=== PATIENT | male | born 1980 | race Caucasian/White ===

== ENCOUNTER 2016-09-08 22:36 | Emergency (ER) | payer MEDICAID, OTHER ==
[~2016-09-08] VITALS: Ht 177.8 cm; Wt 110.0 kg
[2016-09-08 22:45] VITALS: BP 159/110; PULSE 122; RESP 16; O2SAT 99
--- NOTE | 2016-09-08 22:58 | ED.REPORT ---
HPI-General Illness Date of Service Sep 08, 2016 ED Provider: Gareth Bello DO A 36 year old male with a history of anxiety and asthma presents to the ED complaining of possible chemical exposure. The pt was buying a car at 17:00 today when he was exposed to an ozone deodorizing machine. The pt was standing near a car containing this machine when the door was opened. He gasped and immediately noticed a headache and "lung pain." The machine was removed from the car and he test drove it thirty minutes later for an extended period of time. He is now complaining of a "chlorine gas taste" in his mouth, headache, dry mouth, burning lungs, throat irritation, chest heaviness, and difficulty breathing secondary to the chest heaviness. Nursing Notes Stated Complaint: CHEMICAL EXPOSURE Chief Complaint: Respiratory Distress Nursing Notes Reviewed: Yes Allergies: Coded Allergies: No Known Allergies (Verified Allergy, Unknown, 09/08/16) No Active Prescriptions or Reported Meds General Time Seen by MD: 22:58 Chief Complaint Other (Chemical exposure) Hx Obtained From: Patient Arrived By: Walk-in Sudden in Onset?: Yes Onset Occurred: 5 - 8 hours ago Symptom Duration: Since onset Recent Healthcare: No recent doctor visit, No recent hospitalization Similar Sx Previous: No Past Medical History Past Medical History Notes: PCP: Dr. Jenkins in [place] (last seen in 2013) Past Medical History Anxiety Asthma Past Surgical History none reported Family History Reports: Diabetes mellitus, Hypertension Smoking History Current Every Day Smoker Social History Alcohol Use: Denies alcohol use Drug Use: THC Other Social History: , Local resident Ambulatory Status Independent Review of Systems "lung pain" dry mouth throat irritation chest heaviness with difficulty breathing "chlorine gas taste" Full Review of Systems Constitutional: Denies: Fever Respiratory: Denies: Non-productive cough GI: Denies: Abdominal pain Musculoskeletal: Denies: Back pain, Neck pain Skin: Denies Rash Neurologic: Reports: Headache Complete sys rev & neg: except as marked. Physical Exam Vital Signs Vital Signs Date Time Temp Pulse Resp B/P Pulse Ox O2 Delivery O2 Flow Rate FiO2 09/09/16 02:51 36.8 94 24 136/72 94 Room Air 09/09/16 00:47 103 22 96 Room Air 09/08/16 22:45 36.4 122 16 159/110 99 Room Air Initial VS: Reviewed General/Constitutional: Awake, Alert Head / Eyes: Atraumatic, Normocephalic, PERRL, EOMI ENT: Atraumatic, Airway patent, Mucous membranes moist Neck: Atraumatic, Supple, Full range of motion Respiratory / Chest: Atraumatic, Breath sounds = bilat, No respiratory distress faint coarse breath sounds bilaterally Cardiovascular: Heart rate NL, Regular rhythm, Heart sounds NL Abdomen: Atraumatic, Soft, Non-tender Back: Atraumatic, Full range of motion Upper Extremities Upper Extremity / MS: Atraumatic, Full range of motion Lower Extremity / Pelvis / MS: Atraumatic, Full range of motion Skin: Atraumatic, Color NL, No rash, Warm, Dry Neurologic: Oriented X3, Speech NL, No motor deficits, No sensory deficits Psychiatric: Affect NL, Mood NL Interpretation & Diagnostics Lab Results Interpretation Result Diagram: 09/08/160 09/08/16 2310 Test 09/08/16 23:10 09/08/16 23:59 09/09/16 01:55 White Blood Count 11.1th/mm3 (3.8-10.1) Red Blood Count 4.93mil/mm3 (4.40-5.80) Hemoglobin 14.8g/dL (13.8-17.2) Hematocrit 44.2% (41.0-50.0) Mean Corpuscular Volume 89.7fL (81-100) Mean Corpuscular Hemoglobin 30.0pg (27.0-35.0) Mean Corpuscular Hemoglobin Concent 33.5% (32.0-37.0) Red Cell Distribution Width 12.9% (12.3-15.4) Platelet Count 197bil/L (150-400) Neutrophils (%) (Auto) 62.6% (40-74) Lymphocytes (%) (Auto) 29.2% (14-46) Monocytes (%) (Auto) 6.0% (4-12) Eosinophils (%) (Auto) 1.3% (0-5) Basophils (%) (Auto) 0.4% (0-3) Sodium Level 139mEq/L (134-144) Potassium Level 3.7mEq/L (3.5-5.2) Chloride Level 101mEq/L (97-108) Carbon Dioxide Level 22mmol/L (18-29) Blood Urea Nitrogen 15mg/dL (6-20) Creatinine 0.81mg/dL (0.76-1.27) Estimat Glomerular Filtration Rate 115mL/min (>59) Glucose Level 140mg/dL (60-99) Calcium Level 9.2mg/dL (8.5-10.1) Total Bilirubin 0.2mg/dL (0.0-1.2) Aspartate Amino Transf (AST/SGOT) 24U/L (0-50) Alanine Aminotransferase (ALT/SGPT) 29U/L (0-44) Alkaline Phosphatase 90U/L (25-150) Pro-B-Type Natriuretic Peptide 18.53pg/mL (0-86) Total Protein 7.4g/dL (6.4-8.4) Albumin 3.9g/dL (3.4-5.0) Hold Mcgraw Top Tube Received (Received) Urine Color Yellow (YELLOW) Urine Appearance Clear (CLEAR,HAZY) Urine pH 6.0 (5.0-8.0) Urine Specific [place] 1.025 (1.003-1.035) Urine Protein Negativemg/dL (NEG,TRACE) Urine Glucose (UA) Negativemg/dL (NEGATIVE) Urine Ketones Negativemg/dL (NEGATIVE) Urine Occult Blood Trace (NEGATIVE) Urine Nitrite Negative (NEGATIVE) Urine Bilirubin Negative (NEGATIVE) Urine Urobilinogen Normalmg/dL (NORMAL) Urine Leukocyte Esterase Negative (NEGATIVE) Urine RBC 0-2/hpf (0-2) Urine WBC 0-5/hpf (0-5) Urine Epithelial Cells Occasional/hpf (NONE-MOD) Urine Crystals None seen (NONE SEEN) Urine Bacteria None/hpf (NONE-FEW) Urine Hyaline Casts None/lpf (NONE) Urine Granular Casts None seen (NONE SEEN) Urine Waxy Casts None seen (NONE SEEN) Urine Red Blood Cell Casts None seen (NONE SEEN) Urine White Blood Cell Casts None seen (NONE SEEN) Urine Mucus Present (None Seen) Urine Trichomonas None seen (NONE SEEN) Urine Yeast None (NONE SEEN) Urine Culture Reflexed Not indicated Troponin T 0.010ug/L (0.0-0.011) Pulse Oximetry Interpretation Pulse Oximetry Interpretation: 99% on room air Pulse Oximetry: Pulse Ox normal ECG Interpretation ECG Interpretation: sinus tachycardia with a rate of 115 Time: 23:20 Interpreted by: ED physician X-Ray Chest Interpretation Chest Xray Interpretation: no acute findings Interpretation / Wet Read by: Wet read ED physician Re-Eval/Medical Decision Med Decision/Clinical Course This gentleman was observed for 4 hours. No signs of pulmonary edema. He did have mild bronchospasm that was treated with beta agonists and steroids. I consulted with poison control. They felt that he was safe for discharge with the following caveat: There is delayed onset pulmonary symptoms 12-24 hours out in the literature regarding O zone inhalation. I explained this to him. He will come back if any problems. I encouraged him to not smoke at spelled going to make it worse. He uses albuterol as instructed and close outpatient follow- up was recommended. Source of Hx: Old records Time of Eval: 01:36 Patient Status: Condition improved Re-Evaluation/Progress Note: Pt rechecked, who is feeling much better following breathing treatment. The plan for further lab evaluation and probable discharge is discussed. The pt agrees with the plan. Consultation : Call Returned at: 01:40 Enrollment Management Vice President: Agrees with eval, Agrees with plan Note: Consulted with Poison Control regarding pt's case. Poison Control recommends Counseled Regarding: Diagnosis, Lab results, Need for follow-up, When/why to return to ED Discharge & Departure Primary Impression: Inhalation injury Additional Impression: [place] poisoning Encounter type: initial encounter Injury intent: accidental or unintentional Qualified Code: T41.5X1A - Poisoning by therapeutic gases, accidental (unintentional), initial encounter Disposition: Home Discharge Condition All VS Reviewed: Yes Condition: Stable Patient Instructions: Albuterol (By breathing), Chemical Pneumonitis (ED) Additional Instructions: Use your Albuterol as directed. Avoid further ozone exposure. Do not smoke cigarettes. This can worsen the symptoms. There are cases of delayed pulmonary toxicity up to 24 hours out so be cautious and take it easy. Your labs were otherwise reassuring. Your heart blood tests and EKG were also reassuring with no evidence of heart damage. Your chest x-ray looks normal. Call your primary care physician tomorrow to arrange a follow up appointment this week. Return to the emergency room if you develop any new or worsening symptoms including cough with frothy sputum or shortness of breath. Referrals: Ap De Leon MD (PCP) Scribe Attestation Portions of this note were transcribed by Damaris Blair. I, Dr. Beia personally performed the history, physical exam and medical decision-making; I reviewed and confirmed the accuracy of the information in the transcribed note. Signed by: Scott Beavers, 09/09/2016 and 0146. copies to: Lonnie Carney MD, Todd P DO Sep 08, 2016 22:58 DAMARIS BLAIR Sep 08, 2016 23:39
[2016-09-08 23:36] LABS: BASOPHILS % (AUTO) 0.4 % (0-3); EOSINOPHILS % (AUTO) 1.3 % (0-5); Mean Corpuscular Volume 89.7 fL (81-100); NEUTROPHILS % (AUTO) 62.6 % (40-74); Platelet Count 197 bil/L (150-400)
[2016-09-08 23:39] LABS: TROPONIN T 0.01 ug/L (0.0-0.011)
[2016-09-09 00:33] LABS: APPEARANCE,URINE CLEAR (CLEAR,HAZY); COLOR,URINE YELLOW (YELLOW); OCCULT BLOOD,URINE TRACE (NEGATIVE); UROBILINOGEN,URINE NORMAL (NORMAL)
[2016-09-09] MEDS ORDERED: Albuterol-Ipratropium 3 mL Inhalation Solution NEB ONE (00:35)
[2016-09-09] MEDS ORDERED: 0.9% Sodium Chloride 1,000 ML IV ONE (00:35)
[2016-09-09 00:47] VITALS: PULSE 103; RESP 22; O2SAT 96
[2016-09-09] MEDS ORDERED: MethylprednisoLONE Sodium Succinate 62.5 mg/mL 2 mL Inj IVPUSH ONE (01:40)
[2016-09-09 02:51] VITALS: BP 136/72; PULSE 94; RESP 24; O2SAT 94
--- NOTE | 2016-09-09 08:40 | DRSVH ---
PROCEDURE: X-RAY CHEST ONE VIEW, PORTABLE ([id number]) INDICATIONS: burning lungs TECHNIQUE: One view of the chest was acquired. COMPARISON: [facility], CR, XR CHEST 1VW (PORTABLE), 05/03/2015, 9:33. FINDINGS: Surgical changes and devices: None. Lungs and pleura: No pleural effusions or pneumothorax. Lungs are clear. Mediastinum: Mediastinal contours appear normal. Heart size is normal. Bones and chest wall: No suspicious bony lesions. Overlying soft tissues appear unremarkable. IMPRESSION: No acute cardiopulmonary disease. Dictated by: Jude Soria [facility] Interpreted: Dorothea Cruz MD on 09/09/2016 at 8:39 Transcribed by: SUDHEER on 09/09/2016 at 8:40 Approved by: Dorothea Cruz MD, PhD on 09/09/2016 at 18:03
== END 2016-09-09 02:55 | disposition home or self-care (01) ==
LOC: SED 22:36
DX: T41.5X1A Poisoning by therapeutic gases, accidental (unintentional), initial encounter (principal); R06.00 Dyspnea, unspecified; X58.XXXA Exposure to other specified factors, initial encounter; Y93.89 Activity, other specified; Y99.8 Other external cause status; Y92.481 Parking lot as the place of occurrence of the external cause; J45.909 Unspecified asthma, uncomplicated; F17.200 Nicotine dependence, unspecified, uncomplicated; I10 Essential (primary) hypertension; F12.10 Cannabis abuse, uncomplicated
CPT/HCPCS: 36415; 71010; 80053; 81000; 83880; 84484; 85025; 93005; 94664; 96361; 96374; 99285; J2930; J7030; J7620